=== PATIENT | female | born 1965 | race African-American/Black ===

== ENCOUNTER 2018-02-24 07:52 | Emergency (ER) | payer BC ==
[~2018-02-24] VITALS: Ht 165.1 cm; Wt 60.0 kg
[~2018-02-24 07:52] MED LIST: AMLO5TAB4 PO; CLON0.2T PO
[2018-02-24 09:27] LABS: EOSINOPHILS % 1.1 % (0.0-5.0); HEMATOCRIT. 33.4 % (36.0-48.0); HEMOGLOBIN. 10.4 g/dL (12.0-16.0); LYMPHOCYTES % 21.9 % (20.0-50.0); MEAN CORPUSCULAR HEMOGLOBIN 21.5 pg (28.0-32.0); MEAN CORPUSCULAR VOLUME 68.9 fL (81.0-99.0); MONOCYTES % 5.3 % (2.0-8.0); NEUTROPHILS % 70.7 % (40.0-76.0); PLATELET 442 x1000/uL (130-400); RED BLOOD CELL COUNT 4.85 mill/uL (4.2-5.4); RED CELL DISTRIBUTION WIDTH 16.3 % (11.6-14.6)
[2018-02-24 09:33] LABS: CHLORIDE 100 mEq/L (98-107)
[2018-02-24 09:51] LABS: PLATELET ESTIMATE INCREASED
[2018-02-24] MEDS ORDERED: POTASSIUM CHLORIDE 20MEQ TABLET SR PO ONE (10:15)
[2018-02-24 11:05] VITALS: BP 140/83
== END 2018-02-24 11:20 | disposition home or self-care (01) ==
LOC: ER 08:12
DX: R04.0 Epistaxis (principal); I10 Essential (primary) hypertension; E87.6 Hypokalemia; E11.9 Type 2 diabetes mellitus without complications
CPT/HCPCS: 36415; 80053; 85025; 99284; Z7610

== ENCOUNTER 2018-11-18 19:55 | Emergency (ER) | payer BC, OTHER ==
[~2018-11-18] VITALS: Ht 157.5 cm; Wt 127.0 kg
[2018-11-18 21:40] LABS: BASOPHILS % 0.9 % (0.0-2.0); EOSINOPHILS % 0.8 % (0.0-5.0); HEMATOCRIT. 33.3 % (36.0-48.0); HEMOGLOBIN. 10.7 g/dL (12.0-16.0); LYMPHOCYTES % 22.3 % (20.0-50.0); MEAN CORPUSCULAR HEMOGLOBIN 23.1 pg (28.0-32.0); MEAN CORPUSCULAR VOLUME 72.2 fL (81.0-99.0); MEAN PLATELET VOLUME 8.4 fl (7.4-10.4); PLATELET 318 x1000/uL (130-400); RED BLOOD CELL COUNT 4.62 mill/uL (4.2-5.4); RED CELL DISTRIBUTION WIDTH 17.2 % (11.6-14.6)
[2018-11-18 21:45] LABS: CHLORIDE 104 mEq/L (98-107)
[2018-11-18 21:46] LABS: PARTIAL THROMBOPLASTIN TIME 29.6 sec (23.4-31.0); PROTHROMBIN TIME 10.7 sec (9.6-11.0)
[2018-11-18 21:53] LABS: HCG SCREEN NEGATIVE; T4 FREE 0.82 ng/dL (0.76-1.46)
[2018-11-18] MEDS ORDERED: POTASSIUM CHLORIDE 20MEQ TABLET SR PO ONE (22:45)
[2018-11-18 23:44] VITALS: BP 140/66
== END 2018-11-18 23:44 | disposition home or self-care (01) ==
LOC: ER 19:55
DX: I10 Essential (primary) hypertension (principal); R04.0 Epistaxis; E87.6 Hypokalemia; E11.9 Type 2 diabetes mellitus without complications
CPT/HCPCS: 36415; 80053; 84439; 84443; 84484; 84703; 85025; 85610; 85730; 99283; Z7610